=== PATIENT | female | born 1965 | race Caucasian/White ===

== ENCOUNTER 2019-02-08 10:56 | Day surgery (SDC) | payer MEDICAID ==
[~2019-02-08] VITALS: Ht 152.4 cm; Wt 91.6 kg
[2019-02-08] MEDS ORDERED: CHOL10002 PO (12:30)
[2019-02-08] MEDS ORDERED: GLUC-133 PO (12:30)
[2019-02-08] MEDS ORDERED: [UNRECOGNIZED DRUG - CODE] PO (12:30)
[2019-02-08] MEDS ORDERED: FOLI0.8T19 PO (12:30)
[2019-02-08] MEDS ORDERED: LACT1CAP65 PO (12:30)
[2019-02-08] MEDS ORDERED: MERO500P IV (12:30)
[2019-02-08] MEDS ORDERED: VITA1TAB20 PO (12:30)
[2019-02-08] MEDS ORDERED: FISH12002 PO (12:30)
[2019-02-08] MEDS ORDERED: hydromorphone PO (12:30)
[2019-02-08] MEDS ORDERED: SEVE800T8 PO (12:30)
[2019-02-08] MEDS ORDERED: LANTUS SQ (12:30)
[2019-02-08] MEDS ORDERED: LORA0.5T PO (12:30)
[2019-02-08] MEDS ORDERED: ASPI81TA52 PO (12:30)
[2019-02-08] MEDS ORDERED: HYDR-4353 PO (12:30)
[2019-02-08 12:40] VITALS: BP 91/43
[2019-02-08] MEDS ORDERED: HYDROmorphone 1 mg/ml syringe IV ONE (13:25)
[2019-02-08] MEDS ORDERED: normal saline 1000ml 1,000 ML IV SCH (14:51)
[2019-02-08] MEDS ORDERED: heparin 1,000 units/ml 10ml inj ICATH ONE (14:55)
[2019-02-08] MEDS ORDERED: LIDOcaine 1%/PF 5ML 10 MG/ML VIAL SQ ONE (14:55)
[2019-02-08] MEDS ORDERED: fentaNYL/PF 50MCG/1 ML 2ML syringe IV PRN (14:55)
[2019-02-08] MEDS ORDERED: midazolam 2 mg/2 ml injection IV PRN (14:55)
[2019-02-08] MEDS ORDERED: fentaNYL/PF 50MCG/1 ML 2ML syringe ONE (15:06)
[2019-02-08] MEDS ORDERED: LIDOcaine 1%/PF 5ML 10 MG/ML VIAL ONE (15:06)
[2019-02-08] MEDS ORDERED: heparin 1,000unit/ml 10ml vial 10 ML ONE (15:06)
[2019-02-08 16:01] VITALS: BP 95/48
[2019-02-08 16:16] VITALS: BP 95/57
[2019-02-08 16:31] VITALS: BP 112/61
[2019-02-08 16:46] VITALS: BP 108/64
== END 2019-02-08 16:50 ==
LOC: SSTAY O 10:56
PROVIDERS: ATTEND Radiology Diagnostic Radiology
DX: E11.22 Type 2 diabetes mellitus with diabetic chronic kidney disease (principal); N18.9 Chronic kidney disease, unspecified; M86.60 Other chronic osteomyelitis, unspecified site; Z79.899 Other long term (current) drug therapy; Z79.4 Long term (current) use of insulin; Z79.82 Long term (current) use of aspirin; Z89.512 Acquired absence of left leg below knee; Z89.511 Acquired absence of right leg below knee
CPT/HCPCS: 36581; 77001; 99152; C1750; C1769; J1170; J1644; J3010; J7030; A9270

== ENCOUNTER 2020-06-25 06:17 | Inpatient (IN) | payer MEDICAID ==
[~2020-06-25] VITALS: Ht 134.6 cm; Wt 131.0 kg
[~2020-06-25 06:17] MED LIST: ASCO250T68 PO; ASPI81TA52 PO; CHOL10002 PO; FISH12002 PO; FOLI0.8T19 PO; GLUC-133 PO; HYDR-4353 PO; LACT1CAP65 PO; LANTUS SQ; LORA0.5T PO; MERO500P IV; SEVE800T8 PO; VITA1TAB20 PO; hydromorphone PO
[2020-06-25] MEDS ORDERED: vancomycin/NS 1 GM ADD-VANTAGE 250 ML IV ONE (06:50)
[2020-06-25] MEDS ORDERED: piperacillin/tazo 3.375gm/50ml 50 ML IV ONE (06:50)
[2020-06-25 07:26] LABS: BASOPHILS % (AUTO) 0.1 % (0-1); EOSINOPHILS # (AUTO) 0.3 X10'3 (0-0.9); EOSINOPHILS % (AUTO) 2.5 % (0-6); HEMATOCRIT 25.8 % (35.0-45.0); HEMOGLOBIN 8.2 g/dl (12.0-16.0); LYMPHOCYTES # (AUTO) 0.5 X10'3 (1.1-4.8); LYMPHOCYTES % (AUTO) 4.3 % (21-51); MEAN CORPUSCULAR HEMOGLOBIN 28.7 PG (27.0-31.0); MEAN CORPUSCULAR HGB CONC 31.9 g/dL (33.0-36.5); MEAN CORPUSCULAR VOLUME 89.9 FL (78-98); MEAN PLATELET VOLUME 6.5 FL (7.4-10.4); MONOCYTES # (AUTO) 0.4 X10'3 (0-0.9); MONOCYTES % (AUTO) 3.4 % (2-12); NEUTROPHILS # (AUTO) 10.8 X10'3 (1.8-7.7); NEUTROPHILS % (AUTO) 89.7 % (42-75); PLATELET COUNT 185 X10'3 (140-440); RED BLOOD COUNT 2.87 X10'6 (4.20-5.60); RED CELL DISTRIBUTION WIDTH 14.6 % (11.5-14.5)
[2020-06-25 07:41] LABS: ALANINE AMINOTRANSFERASE 7 U/L (12-78); ALBUMIN 2.3 G/DL (3.4-5.0); ALBUMIN/GLOBULIN RATIO 0.4 (1.1-1.5); ALKALINE PHOSPHATASE 53 IU/L (46-116); ANION GAP 18 (8-16); ASPARTATE AMINO TRANSFERASE 15 U/L (10-37); BILIRUBIN,TOTAL 0.6 MG/DL (0.1-1.0); BLOOD UREA NITROGEN 93 MG/DL (7-18); BUN/CREATININE RATIO 9.4 (6.6-38.0); CALCIUM 6.6 MG/DL (8.5-10.1); CHLORIDE 98 MMOL/L (99-107); CREATININE 9.93 MG/DL (0.40-0.90); GLUCOSE 143 MG/DL (70-104); POTASSIUM 4.9 MMOL/L (3.5-5.1); SODIUM 135 MMOL/L (135-145); TOTAL CARBON DIOXIDE 18.6 MMOL/L (24-32); TOTAL PROTEIN 8.3 G/DL (6.4-8.2); eGFR 4 ML/MIN
[2020-06-25 07:42] LABS: VANCOMYCIN,RANDOM 18.8 UG/ML
--- NOTE | 2020-06-25 08:00 | NUR ---
Pt repositioned after pressure/wound sores pictures taken
[2020-06-25 08:35] LABS: TROPONIN I < 0.04 NG/ML (0.0-0.05)
[2020-06-25 09:21] LABS: PLATELET ESTIMATE NORMAL; TOTAL CELLS COUNTED 100
[2020-06-25 09:22] LABS: HYPOCHROMASIA 1+; POLYCHROMASIA FEW; SCHISTOCYTES FEW
--- NOTE | 2020-06-25 09:24 | NUR ---
Pt given ice and repositioned, pt denies needs or questions.
[2020-06-25] MEDS ORDERED: ondansetron/PF 4mg/2ml inj IV PRN (09:30)
[2020-06-25] MEDS ORDERED: heparin 1,000unit/ml 10ml vial 10 ML IV ONE (09:30)
[2020-06-25] MEDS ORDERED: acetaminophen 325mg tablet PO PRN (09:30)
[2020-06-25] MEDS ORDERED: HYDROcodone/acetaminophen 5mg/325mg tablet PO PRN (09:30)
[2020-06-25] MEDS ORDERED: heparin 1,000 units/ml 10ml inj IV ONE (09:30)
[2020-06-25] MEDS ORDERED: albumin (human) 25% 100ml IV 100 ML IV PRN (09:30)
[2020-06-25] MEDS ORDERED: bisacodyl 10mg suppository rectal RC PRN (09:30)
[2020-06-25] MEDS ORDERED: epoetin 20,000 units/ml inj IV ONE (09:30)
[2020-06-25 10:06] LABS: HEMOGLOBIN A1C 6.7 % (4.5-6.2)
[2020-06-25] MEDS ORDERED: LACT1TAB21 PO (10:20)
[2020-06-25] MEDS ORDERED: HYDR50SY PO (10:20)
[2020-06-25] MEDS ORDERED: INSU100I31 SQ (10:22)
[2020-06-25] MEDS ORDERED: CEPH500C5 PO (10:43)
[2020-06-25] MEDS ORDERED: OMEG-79 PO (10:44)
[2020-06-25] MEDS: meropenem inj 500 MG in normal saline 100ml IV soln 100 ML IV SCH (11:00)
--- NOTE | 2020-06-25 11:28 | NUR ---
CALLED DR ORTIZ AND INFORMED OF PTS TRENDING BPS. PT CURRENT BP 88/52. RECEIVED VO TO ADMINISTER 100ML OF 25% ALBUMIN X 1 NOW.
[2020-06-25] MEDS ORDERED: albumin (human) 25% 100 ML IV solution IV ONE (11:40)
--- NOTE | 2020-06-25 12:14 | NUR ---
RELIEVING RAJESH STODDARD FOR LUNCH
--- NOTE | 2020-06-25 12:31 | NUR ---
WOKE PATIENT UP AND INSTRUCTED HER TO TAKE DEEP BREATHS AND SPO2 TO 93%
--- NOTE | 2020-06-25 12:46 | NUR ---
PHONED DR ONOFRE, ORDERS RECEIVED. DR ORTIZ INFORMED OF BP OF 79/47, DECREASED LOC, SPO2 TO 80% WHEN SLEEPING AND RR 10
--- NOTE | 2020-06-25 13:17 | NUR ---
Spoke with Dr Lindsay re BiPAP order to clarify the use for it. Pt is on RA with a SpO2 of 96%, no SOB or distress noted. Pt states she has never been diagnosed with EVELIO or does she use anything at home while she sleeps. Dr luciano stated not to do anything and to DC the BiPAP order. He stated he wanted the pt to be transferred up to PCU [facility]. Pt sleeping peacefully RR 14 SpO2 96%.
--- NOTE | 2020-06-25 13:27 | NUR ---
SPOKE TO DARRIUS IN WOUND CARE AGAIN. INFORMED HER THAT PATIENT DOES HAVE BOTH COCCYX DECUB AND POSTERIOR THIGH DECUB. PER DARRIUS, NO NEED AT HIS TIME FOR SPECIALTY BED FOR DECUBS, ONLY NEED BARIATRIC BED FOR PATIENT WIDTH
[2020-06-25 15:00] VITALS: BP 102/47
--- NOTE | 2020-06-25 15:00 | NUR ---
SPOKE WITH DR ORTIZ REGARDING PICC ORDER PER ER TO BE PLACED EMERGENTLY IN THE ER. HE ADVISED PICC NOT NEEDED AT THIS TIME IF PT HAS IV ACCESS. Prasanna SALDIVAR PICC RN
--- NOTE | 2020-06-25 15:32 | NUR ---
Received Pt A&O, vital signs 97.3, 101/50, HR 90, 20, 93%. Report was received while pt was in ED by RICHI Boggs.
[2020-06-25] MEDS ORDERED: LIDOcaine 1% (10mg/ml) 2ml vial SQ ONE (15:50)
[2020-06-25] MEDS ORDERED: piperacillin/tazo 3.375gm/50ml 50 ML IV SCH (16:00)
[2020-06-25] MEDS ORDERED: vancomycin/NS 1 GM ADD-VANTAGE 250 ML X 1 DOSE IV PRN (16:05)
--- NOTE | 2020-06-25 16:54 | NUR ---
Pt refused 2 RN skin check.
[2020-06-25 18:00] VITALS: BP 90/40
--- NOTE | 2020-06-25 18:33 | NUR ---
Problems reprioritized. Patient report given, questions answered & plan of care reviewed with RICHI Garcia. Pt receiving HD.
[2020-06-25] MEDS: insulin glargine (Lantus) pen - multi-dose SQ SCH (20:26)
--- NOTE | 2020-06-25 20:27 | NUR ---
Pt refused lantus this evening r/t her blood sugar being 81. Pt informed this nurse that she would not administer any lantus at home with her current blood sugar reading.
[2020-06-25] MEDS: lactobacillus rhamnosus 10,000 MMU CELLS/CAPSULE PO SCH (20:28)
[2020-06-25] MEDS: docusate sod 100mg capsule PO SCH (20:28)
[2020-06-25] MEDS ORDERED: enoxaparin 40mg/0.4ml syringe SUBCUT SCH (21:00)
[2020-06-25] MEDS ORDERED: temazepam 15mg capsule PO PRN (21:00)
[2020-06-25 22:00] VITALS: BP 95/48
[2020-06-26 02:00] VITALS: BP 92/47
[2020-06-26 06:24] LABS: BASOPHILS # (AUTO) 0.1 X10'3 (0-0.2); BASOPHILS % (AUTO) 0.4 % (0-1); EOSINOPHILS # (AUTO) 0.5 X10'3 (0-0.9); EOSINOPHILS % (AUTO) 3.1 % (0-6); HEMATOCRIT 24.2 % (35.0-45.0); HEMOGLOBIN 7.8 g/dl (12.0-16.0); LYMPHOCYTES # (AUTO) 0.7 X10'3 (1.1-4.8); LYMPHOCYTES % (AUTO) 4.9 % (21-51); MEAN CORPUSCULAR HEMOGLOBIN 28.1 PG (27.0-31.0); MEAN CORPUSCULAR HGB CONC 32.2 g/dL (33.0-36.5); MEAN CORPUSCULAR VOLUME 87.1 FL (78-98); MEAN PLATELET VOLUME 6.4 FL (7.4-10.4); MONOCYTES # (AUTO) 0.8 X10'3 (0-0.9); MONOCYTES % (AUTO) 5.2 % (2-12); NEUTROPHILS # (AUTO) 13.1 X10'3 (1.8-7.7); NEUTROPHILS % (AUTO) 86.4 % (42-75); PLATELET COUNT 194 X10'3 (140-440); RED BLOOD COUNT 2.78 X10'6 (4.20-5.60); RED CELL DISTRIBUTION WIDTH 14.5 % (11.5-14.5); WHITE BLOOD COUNT 15.2 X10'3 (4.5-11.0)
[2020-06-26 06:30] VITALS: BP 98/44
--- NOTE | 2020-06-26 06:35 | NUR ---
Report given to Josie STODDARD.
[2020-06-26 06:37] LABS: ALBUMIN 2.3 G/DL (3.4-5.0); ANION GAP 15 (8-16); BLOOD UREA NITROGEN 54 MG/DL (7-18); BUN/CREATININE RATIO 8.4 (6.6-38.0); CALCIUM 6.8 MG/DL (8.5-10.1); CHLORIDE 103 MMOL/L (99-107); CREATININE 6.42 MG/DL (0.40-0.90); GLUCOSE 93 MG/DL (70-104); PHOSPHORUS 5.4 MG/DL (2.3-4.5); SODIUM 140 MMOL/L (135-145); TOTAL CARBON DIOXIDE 22.3 MMOL/L (24-32); VANCOMYCIN,RANDOM 13.6 UG/ML; eGFR 7 ML/MIN
--- NOTE | 2020-06-26 06:37 | NUR ---
Patient in room PCU 3024. I have received report from Radha STODDARD and had the opportunity to ask questions and assume patient care.
[2020-06-26] MEDS ORDERED: heparin 1,000 units/ml 10ml inj IV ONE (08:10)
[2020-06-26] MEDS ORDERED: heparin 1,000unit/ml 10ml vial 10 ML IV ONE (08:10)
[2020-06-26] MEDS ORDERED: albumin (human) 25% 100ml IV 100 ML IV PRN (08:10)
[2020-06-26] MEDS ORDERED: vancomycin inj. 750 MG in normal saline 250ml IV soln 250 ML IV ONE (09:00)
[2020-06-26] MEDS: OMEGA-3/DHA/EPA/FISH OIL 1 EACH CAPSULE.DR PO SCH (09:14)
[2020-06-26] MEDS: docusate sod 100mg capsule PO SCH ×2 (09:14→20:26)
[2020-06-26] MEDS: aspirin 81mg tablet.DR PO SCH (09:14)
[2020-06-26] MEDS: lactobacillus rhamnosus 10,000 MMU CELLS/CAPSULE PO SCH ×2 (09:14→20:26)
[2020-06-26 11:00] VITALS: BP 104/44
[2020-06-26] MEDS: meropenem inj 500 MG in normal saline 100ml IV soln 100 ML IV SCH (11:02)
--- NOTE | 2020-06-26 11:06 | NUR ---
Offered pain medicine to the patient, she refused it. Patient stated that she takes 10mg of [place] and that 5mg will not help her. Patient said she will talk to the doctor about this
[2020-06-26] MEDS: HYDROmorphone inj. 0.5 MG/0.5 ML DISP.SYRIN IV PRN ×3 (11:11→20:25)
--- NOTE | 2020-06-26 11:13 | NUR ---
Upon review of chart, I discovered patient already on [place] 10mg. However, when I offered it to patient, she requested Dilaudid IV instead.
[2020-06-26 15:00] VITALS: BP 101/63
[2020-06-26] MEDS ORDERED: LIDOcaine 1% (10mg/ml) 2ml vial SQ ONE (15:10)
--- NOTE | 2020-06-26 15:23 | NUR ---
Dialysis nurse at bedside at this time
--- NOTE | 2020-06-26 15:34 | NUR ---
Initial: pt presents as transfer from [facility]. Admitted with sepsis, nonhealing ulcer to back left thigh, Jon 12, h/o ESRD, HD for year and a half using left AV graft, s/p bilateral AKA, morbidly obese, type 2 diabetes, and c/o itchy lesions all over the body all per H&P note. Phosphorus is elevated, elevated phos could also be r/t itchy skin. Ht prior to AKA 60 inches, current high 53 inches. Wt is adjusted in consideration to morbid obesity and bilateral AKA. Met with patient at bedside, provided written high protein education handout with verbal review. Emphasized eating protein rich foods to support wound heal and HD needs. Obtained food preferences including chopped meats with gravy and 4 oz whole milk with breakfast, d/w dietary. Recommend: 1. continue renal, carb controlled diet, chopped meats 2. recommend phosphate binder 3. routine bowel care 4. wt per rx Addendum: 06/26/20 at [address] Amended: Links added.
--- NOTE | 2020-06-26 18:15 | NUR ---
Patient in room PCU 3024. I have received report from RICHI Munoz and had the opportunity to ask questions and assume patient care.
--- NOTE | 2020-06-26 18:17 | NUR ---
Problems reprioritized. Patient report given, questions answered & plan of care reviewed with Jessica SOTDDARD.
[2020-06-26 18:30] VITALS: BP 102/56
--- NOTE | 2020-06-26 18:51 | NUR ---
Pt receiving dialysis at this time, airport maintenance laborer at bedside. No complaints. Addendum: 06/26/20 at 1852 by Mike Carlton RN Amended: Links added.
--- NOTE | 2020-06-26 19:29 | NUR ---
Repositioned, sitting up in bed eating dinner. Dialysis finished. Addendum: 06/26/20 at 1931 by Mike Carlton RN Amended: Links added.
[2020-06-26] MEDS: enoxaparin 30mg/0.3ml syringe SUBCUT SCH (20:26)
--- NOTE | 2020-06-26 20:38 | NUR ---
Talking on phone, refusing to turn or any hs, wound care at this time. Addendum: 06/26/20 at 2038 by Mike Carlton RN Amended: Links added.
[2020-06-26] MEDS: insulin glargine (Lantus) pen - multi-dose SQ SCH (21:00)
[2020-06-26 22:00] VITALS: BP 90/46
--- NOTE | 2020-06-26 23:00 | NUR ---
refuses any hs care at this [facility] refuses to turn ot have sacrum assessed or under pannus, refuses f/c until next dilauded. Addendum: 06/26/20 at 2301 by Mike Carlton RN Amended: Links added.
[2020-06-27 02:30] VITALS: BP 110/55
[2020-06-27] MEDS: VANCOMYCIN LEVEL IV SCH (03:00)
[2020-06-27] MEDS: HYDROmorphone inj. 0.5 MG/0.5 ML DISP.SYRIN IV PRN ×4 (04:40→20:24)
--- NOTE | 2020-06-27 04:46 | NUR ---
pT HAS REFUSED THROUGHOUT NIGHT TO HAVE PICTURES TAKEN OF SACRUM AND WOUNDS TO UPPER LEGS. LEGS WEEPING SEROUS DRNG, PT REFUSES TO TURN AND HAS REFUSED TO TURN MOST OF NIGHT. "I NEED TO SLEEP, NO NOT NOW" PT STATES WILL HAVE BATH, HARO CAR AND PICTURES TAKEN THIS AM WHEN SHE WAKES UP. DILAUDED GIVEN FOR PAIN. Addendum: 06/27/20 at 0448 by Mike Carlton RN Amended: Links added.
[2020-06-27 05:50] LABS: BASOPHILS % (AUTO) 0.2 % (0-1); EOSINOPHILS # (AUTO) 0.7 X10'3 (0-0.9); EOSINOPHILS % (AUTO) 4.2 % (0-6); HEMATOCRIT 22.5 % (35.0-45.0); HEMOGLOBIN 7.2 g/dl (12.0-16.0); MEAN CORPUSCULAR HGB CONC 32.1 g/dL (33.0-36.5); MEAN CORPUSCULAR VOLUME 87.1 FL (78-98); MEAN PLATELET VOLUME 6.2 FL (7.4-10.4); MONOCYTES # (AUTO) 1.2 X10'3 (0-0.9); MONOCYTES % (AUTO) 7.1 % (2-12); NEUTROPHILS # (AUTO) 13.6 X10'3 (1.8-7.7); NEUTROPHILS % (AUTO) 82.5 % (42-75); PLATELET COUNT 199 X10'3 (140-440); RED BLOOD COUNT 2.59 X10'6 (4.20-5.60); RED CELL DISTRIBUTION WIDTH 14.9 % (11.5-14.5); WHITE BLOOD COUNT 16.5 X10'3 (4.5-11.0)
[2020-06-27 06:00] VITALS: BP 102/48
[2020-06-27 06:04] LABS: ALBUMIN 2.1 G/DL (3.4-5.0); ANION GAP 11 (8-16); BLOOD UREA NITROGEN 37 MG/DL (7-18); BUN/CREATININE RATIO 7.7 (6.6-38.0); CALCIUM 7.2 MG/DL (8.5-10.1); CHLORIDE 103 MMOL/L (99-107); GLUCOSE 87 MG/DL (70-104); MAGNESIUM 1.9 MG/DL (1.5-2.4); PHOSPHORUS 4.2 MG/DL (2.3-4.5); POTASSIUM 3.8 MMOL/L (3.5-5.1); SODIUM 139 MMOL/L (135-145); TOTAL CARBON DIOXIDE 25.3 MMOL/L (24-32); VANCOMYCIN,RANDOM 16.2 UG/ML; eGFR 9 ML/MIN
--- NOTE | 2020-06-27 06:18 | NUR ---
Problems reprioritized. Patient report given, questions answered & plan of care reviewed witH. RICHI CARRERO Addendum: 06/27/20 at 0618 by Mike Carlton RN Amended: Links added.
--- NOTE | 2020-06-27 06:50 | NUR ---
Patient in room PCU 3024. I have received report from Jessica STODDARD and had the opportunity to ask questions and assume patient care.
[2020-06-27] MEDS: docusate sod 100mg capsule PO SCH ×2 (07:45→20:22)
[2020-06-27] MEDS: aspirin 81mg tablet.DR PO SCH (07:45)
[2020-06-27] MEDS: meropenem inj 500 MG in normal saline 100ml IV soln 100 ML IV SCH (07:45)
[2020-06-27] MEDS: lactobacillus rhamnosus 10,000 MMU CELLS/CAPSULE PO SCH ×2 (07:45→20:22)
[2020-06-27] MEDS: OMEGA-3/DHA/EPA/FISH OIL 1 EACH CAPSULE.DR PO SCH (07:45)
[2020-06-27] MEDS ORDERED: LIDOcaine 1% w/epiNEPHrine 1:200,000 30ml vial ONE (07:50)
--- NOTE | 2020-06-27 08:30 | NUR ---
Pt has small scattered scabs to bilat arms,torso and neck, bruising to abd. dressing to Right arm shunt. large pannus, reddened underneath, pt refuses to turn to have sacrum assessed or pictures taken, bilat aka, edematous weepin refuses any wound care, skin care at this time. Lotion applied a little on stumps but refused all other skin care. Turning only when pt requests. Will NOT allow Q2Hr turn.
[2020-06-27 08:58] LABS: PLATELET ESTIMATE NORMAL; TOTAL CELLS COUNTED 100
[2020-06-27 08:59] LABS: ANISOCYTOSIS 1+; HYPOCHROMASIA 2+; POLYCHROMASIA FEW; SCHISTOCYTES FEW
[2020-06-27 09:00] LABS: STOMATOCYTES 1+; TOXIC GRANULATION 2+
[2020-06-27 11:00] VITALS: BP 99/45
--- NOTE | 2020-06-27 11:31 | NUR ---
called Dr Costello regarding results of MDRO in the urine, E.Coli sample from [place].
[2020-06-27 15:00] VITALS: BP 101/43
[2020-06-27 18:00] VITALS: BP 87/44
--- NOTE | 2020-06-27 18:41 | NUR ---
Problems reprioritized. Patient report given, questions answered & plan of care reviewed with Gordon STODDARD.
--- NOTE | 2020-06-27 18:55 | NUR ---
I have received report from RICHI Brown and had the opportunity to ask questions and assume patient care.
[2020-06-27] MEDS: enoxaparin 30mg/0.3ml syringe SUBCUT SCH (20:23)
[2020-06-27] MEDS: insulin glargine (Lantus) pen - multi-dose SQ SCH (21:00)
[2020-06-28] VITALS (10 sets, daily range): BP systolic 70–120; BP diastolic 26–90
[2020-06-28] MEDS: HYDROmorphone inj. 0.5 MG/0.5 ML DISP.SYRIN IV PRN ×5 (00:22→21:41)
[2020-06-28] MEDS: VANCOMYCIN LEVEL IV SCH (03:00)
--- NOTE | 2020-06-28 06:25 | NUR ---
Patient report given, questions answered & plan of care reviewed with RICHI Munson.
--- NOTE | 2020-06-28 06:52 | NUR ---
Patient in room PCU 3024. I have received report from TEODORO STODDARD and had the opportunity to ask questions and assume patient care.
[2020-06-28 07:33] LABS: BASOPHILS # (AUTO) 0.1 X10'3 (0-0.2); BASOPHILS % (AUTO) 0.4 % (0-1); EOSINOPHILS # (AUTO) 0.7 X10'3 (0-0.9); EOSINOPHILS % (AUTO) 4.4 % (0-6); LYMPHOCYTES # (AUTO) 1.5 X10'3 (1.1-4.8); LYMPHOCYTES % (AUTO) 8.8 % (21-51); MEAN CORPUSCULAR HEMOGLOBIN 28.8 PG (27.0-31.0); MEAN CORPUSCULAR HGB CONC 32.7 g/dL (33.0-36.5); MEAN CORPUSCULAR VOLUME 87.9 FL (78-98); MEAN PLATELET VOLUME 6.1 FL (7.4-10.4); MONOCYTES # (AUTO) 1.2 X10'3 (0-0.9); MONOCYTES % (AUTO) 7.3 % (2-12); NEUTROPHILS # (AUTO) 13.1 X10'3 (1.8-7.7); NEUTROPHILS % (AUTO) 79.1 % (42-75); PLATELET COUNT 195 X10'3 (140-440); RED BLOOD COUNT 2.38 X10'6 (4.20-5.60); RED CELL DISTRIBUTION WIDTH 14.7 % (11.5-14.5); WHITE BLOOD COUNT 16.6 X10'3 (4.5-11.0)
[2020-06-28 07:39] LABS: HEMATOCRIT 20.9 % (35.0-45.0); HEMOGLOBIN 6.8 g/dl (12.0-16.0)
--- NOTE | 2020-06-28 07:39 | NUR ---
LAB CALLED ON A CRITICAL H&H OF 6.8/20.9. THEY STILL DON'T HAVE CHEM PANEL UP YET TO CHECK OTHER LABS
[2020-06-28 07:48] LABS: ALBUMIN 2.1 G/DL (3.4-5.0); ANION GAP 11 (8-16); BLOOD UREA NITROGEN 41 MG/DL (7-18); BUN/CREATININE RATIO 7.8 (6.6-38.0); CHLORIDE 99 MMOL/L (99-107); CREATININE 5.27 MG/DL (0.40-0.90); GLUCOSE 97 MG/DL (70-104); PHOSPHORUS 4.4 MG/DL (2.3-4.5); POTASSIUM 3.9 MMOL/L (3.5-5.1); SODIUM 135 MMOL/L (135-145); TOTAL CARBON DIOXIDE 24.7 MMOL/L (24-32); VANCOMYCIN,RANDOM 14.3 UG/ML; eGFR 8 ML/MIN
[2020-06-28] MEDS: aspirin 81mg tablet.DR PO SCH (08:00)
[2020-06-28] MEDS ORDERED: vancomycin/NS 1 GM ADD-VANTAGE 250 ML X 1 DOSE IV ONE (08:00)
[2020-06-28 08:25] LABS: ANISOCYTOSIS 1+; PLATELET ESTIMATE NORMAL; POLYCHROMASIA FEW; STOMATOCYTES 1+; TOTAL CELLS COUNTED 100
[2020-06-28] MEDS: meropenem inj 500 MG in normal saline 100ml IV soln 100 ML IV SCH (09:01)
[2020-06-28] MEDS: OMEGA-3/DHA/EPA/FISH OIL 1 EACH CAPSULE.DR PO SCH (09:02)
[2020-06-28] MEDS: docusate sod 100mg capsule PO SCH ×2 (09:02→20:53)
[2020-06-28] MEDS: lactobacillus rhamnosus 10,000 MMU CELLS/CAPSULE PO SCH ×2 (09:02→20:53)
--- NOTE | 2020-06-28 10:12 | NUR ---
CALLED LAB FOR BLOOD. NOT READY YET
--- NOTE | 2020-06-28 10:48 | NUR ---
PRESSURE ULCER EDUCATION: DEFINITION: A pressure ulcer is an area of skin that breaks down when you stay in one position too long. The constant pressure against the skin reduces the blood flow to that area and the affected tissue dies. CAUSES: "Being bedridden or in a wheelchair "Fragile skin "Having a chronic condition, such as diabetes or vascular disease "Inability to move certain parts of your body without assistance "Older age "Incontinence of urine or stool SYMPTOMS: "A reddened area that DOES NOT turn white when pressed on - this can be the beginning of a pressure ulcer "A blister, deep sore or a crater - these can be advanced pressure ulcers FIRST AID: "Relieve the pressure on this area "Keep the area clean and dry "Call your primary doctor if you see any of the above symptoms "DO NOT massage the area "DO NOT use a donut shaped or ring shaped pillow- these actually interfere with the blood flow and cause complications PREVENTION: "Check for pressure ulcers everyday "Change position at least every two hours to relieve pressure "Use items that help relieve pressure- pillows, sheepskin, foam padding, and powders. "Keep skin clean and dry "Eat healthy well balanced meals "Exercise daily IF YOU SEE ANY OF THESE SYMPTOMS WHILE IN THE HOSPITAL - TELL YOUR NURSE IMMEDIATELY. IF YOU SEE ANY OF THESE SYMPTOMS WHILE AT HOME OR HAVE ANY QUESTIONS OR CONCERNS ABOUT PRESSURE ULCERS - CALL YOUR PRIMARY DOCTOR IMMEDIATELY. Addendum: 06/28/20 at 1050 by Tracey Maier RN Amended: Links added.
--- NOTE | 2020-06-28 11:22 | NUR ---
BLOOD IS READY. WILL FINSIH IV INFUSION OF VANCO THEN HANG BLOOD. PT CANNOT HAVE ANOTHER IV SHE IS ON DIALYSIS
[2020-06-28 11:30] LABS: HBSAG SCREEN Negative (Negative)
--- NOTE | 2020-06-28 18:20 | NUR ---
Patient in room PCU 3024. I have received report from Jeimy STODDARD and had the opportunity to ask questions and assume patient care.
--- NOTE | 2020-06-28 18:31 | NUR ---
Problems reprioritized. Patient report given, questions answered & plan of care reviewed with SUPRIYA STODDARD.
[2020-06-28] MEDS: enoxaparin 30mg/0.3ml syringe SUBCUT SCH (20:53)
[2020-06-28] MEDS: insulin glargine (Lantus) pen - multi-dose SQ SCH (21:00)
[2020-06-29 02:00] VITALS: BP 96/58
[2020-06-29] MEDS: VANCOMYCIN LEVEL IV SCH (03:00)
[2020-06-29] MEDS: HYDROmorphone inj. 0.5 MG/0.5 ML DISP.SYRIN IV PRN ×4 (04:06→20:55)
[2020-06-29 06:00] VITALS: BP 96/52
--- NOTE | 2020-06-29 06:42 | NUR ---
Problems reprioritized. Patient report given, questions answered & plan of care reviewed with Sho STODDARD.
--- NOTE | 2020-06-29 07:13 | NUR ---
Patient in room PCU 3024. I have received report from RICHI Reyna and had the opportunity to ask questions and assume patient care.
[2020-06-29 07:19] LABS: BASOPHILS # (AUTO) 0.1 X10'3 (0-0.2); BASOPHILS % (AUTO) 0.5 % (0-1); EOSINOPHILS # (AUTO) 0.6 X10'3 (0-0.9); EOSINOPHILS % (AUTO) 4.6 % (0-6); HEMATOCRIT 24.1 % (35.0-45.0); HEMOGLOBIN 7.8 g/dl (12.0-16.0); LYMPHOCYTES # (AUTO) 1.1 X10'3 (1.1-4.8); LYMPHOCYTES % (AUTO) 8.1 % (21-51); MEAN CORPUSCULAR HEMOGLOBIN 27.8 PG (27.0-31.0); MEAN CORPUSCULAR HGB CONC 32.2 g/dL (33.0-36.5); MEAN CORPUSCULAR VOLUME 86.4 FL (78-98); MEAN PLATELET VOLUME 6.2 FL (7.4-10.4); NEUTROPHILS # (AUTO) 11.1 X10'3 (1.8-7.7); NEUTROPHILS % (AUTO) 79.8 % (42-75); PLATELET COUNT 182 X10'3 (140-440); RED BLOOD COUNT 2.79 X10'6 (4.20-5.60); RED CELL DISTRIBUTION WIDTH 14.9 % (11.5-14.5); WHITE BLOOD COUNT 13.9 X10'3 (4.5-11.0)
[2020-06-29 07:31] LABS: ANION GAP 11 (8-16); BLOOD UREA NITROGEN 45 MG/DL (7-18); BUN/CREATININE RATIO 7.9 (6.6-38.0); CALCIUM 7.4 MG/DL (8.5-10.1); CHLORIDE 99 MMOL/L (99-107); CREATININE 5.73 MG/DL (0.40-0.90); GLUCOSE 121 MG/DL (70-104); MAGNESIUM 1.9 MG/DL (1.5-2.4); PHOSPHORUS 4.6 MG/DL (2.3-4.5); POTASSIUM 3.8 MMOL/L (3.5-5.1); SODIUM 135 MMOL/L (135-145); TOTAL CARBON DIOXIDE 25.1 MMOL/L (24-32); eGFR 8 ML/MIN
[2020-06-29] MEDS: OMEGA-3/DHA/EPA/FISH OIL 1 EACH CAPSULE.DR PO SCH (08:28)
[2020-06-29] MEDS: lactobacillus rhamnosus 10,000 MMU CELLS/CAPSULE PO SCH ×2 (08:28→19:10)
[2020-06-29] MEDS: aspirin 81mg tablet.DR PO SCH (08:28)
[2020-06-29] MEDS: docusate sod 100mg capsule PO SCH ×2 (08:28→19:09)
[2020-06-29] MEDS: meropenem inj 500 MG in normal saline 100ml IV soln 100 ML IV SCH (08:29)
[2020-06-29] MEDS ORDERED: heparin 1,000 units/ml 10ml inj IV ONE (10:15)
[2020-06-29] MEDS ORDERED: normal saline 1000ml 250 ML IV PRN (10:15)
[2020-06-29] MEDS ORDERED: epoetin 20,000 units/ml inj IV ONE (10:15)
[2020-06-29] MEDS ORDERED: LIDOcaine 1% (10mg/ml) 2ml vial SQ ONE (10:15)
[2020-06-29 11:00] VITALS: BP 96/47
--- NOTE | 2020-06-29 11:21 | NUR ---
Reassessment: Patient's PO intake appears to be improving, previously averaging 25% PO intake up to 75-100% PO intake at two most recent meals. Pt has RD contact information if with any further food preferences. LBM 06/25, now 4 days with no BM though no GI symptoms per GI care trends. Pt receiving routine bowel care with PRN bowel care available. Will continue to follow closely and monitor need for further nutrition intervention. Recommend: 1. continue renal, carb controlled diet, chopped meats 2. recommend phosphate binder 3. routine bowel care 4. wt per rx Addendum: 06/29/20 at [address] Amended: Links added.
[2020-06-29 12:06] LABS: TOTAL CELLS COUNTED 100
[2020-06-29 12:07] LABS: PLATELET ESTIMATE NORMAL; POLYCHROMASIA FEW; STOMATOCYTES 2+; TEAR DROP CELLS FEW
[2020-06-29] MEDS ORDERED: albumin (human) 25% 100ml IV 100 ML IV PRN (12:15)
--- NOTE | 2020-06-29 12:30 | NUR ---
Pt having low bp while on dialysis. New order for Albumin IV [place].
[2020-06-29 15:00] VITALS: BP 105/51
[2020-06-29 18:00] VITALS: BP 104/52
--- NOTE | 2020-06-29 18:42 | NUR ---
Problems reprioritized. Patient report given, questions answered & plan of care reviewed with RICHI Garcia.
[2020-06-29] MEDS: HYDROcodone/acetaminophen 10/325mg tab PO PRN (19:10)
[2020-06-29] MEDS: enoxaparin 30mg/0.3ml syringe SUBCUT SCH (19:11)
[2020-06-29] MEDS: insulin glargine (Lantus) pen - multi-dose SQ SCH (21:00)
[2020-06-29 22:00] VITALS: BP 90/50
[2020-06-30] MEDS: HYDROcodone/acetaminophen 10/325mg tab PO PRN ×3 (01:00→23:12)
[2020-06-30] MEDS: HYDROmorphone inj. 0.5 MG/0.5 ML DISP.SYRIN IV PRN ×4 (01:50→23:53)
[2020-06-30 02:00] VITALS: BP 119/50
[2020-06-30] MEDS: VANCOMYCIN LEVEL IV SCH (03:00)
--- NOTE | 2020-06-30 06:18 | NUR ---
Problems reprioritized. Patient report given, questions answered & plan of care reviewed with RICHI Carranza.
[2020-06-30 06:29] LABS: BASOPHILS % (AUTO) 0.3 % (0-1); EOSINOPHILS # (AUTO) 0.7 X10'3 (0-0.9); EOSINOPHILS % (AUTO) 4.7 % (0-6); HEMATOCRIT 25.2 % (35.0-45.0); HEMOGLOBIN 8.1 g/dl (12.0-16.0); LYMPHOCYTES # (AUTO) 1.3 X10'3 (1.1-4.8); LYMPHOCYTES % (AUTO) 8.9 % (21-51); MEAN CORPUSCULAR HEMOGLOBIN 28.2 PG (27.0-31.0); MEAN CORPUSCULAR HGB CONC 32.1 g/dL (33.0-36.5); MEAN CORPUSCULAR VOLUME 87.8 FL (78-98); MEAN PLATELET VOLUME 6.3 FL (7.4-10.4); MONOCYTES % (AUTO) 6.9 % (2-12); NEUTROPHILS # (AUTO) 11.5 X10'3 (1.8-7.7); NEUTROPHILS % (AUTO) 79.2 % (42-75); PLATELET COUNT 193 X10'3 (140-440); RED BLOOD COUNT 2.88 X10'6 (4.20-5.60); WHITE BLOOD COUNT 14.5 X10'3 (4.5-11.0)
--- NOTE | 2020-06-30 06:29 | NUR ---
Patient in room PCU 3024. I have received report from Radha STODDARD and had the opportunity to ask questions and assume patient care.
[2020-06-30 06:32] LABS: ALBUMIN 2.2 G/DL (3.4-5.0); ANION GAP 9 (8-16); BLOOD UREA NITROGEN 26 MG/DL (7-18); BUN/CREATININE RATIO 6.7 (6.6-38.0); CALCIUM 7.5 MG/DL (8.5-10.1); CHLORIDE 100 MMOL/L (99-107); CREATININE 3.87 MG/DL (0.40-0.90); GLUCOSE 138 MG/DL (70-104); MAGNESIUM 1.9 MG/DL (1.5-2.4); PHOSPHORUS 3.3 MG/DL (2.3-4.5); SODIUM 135 MMOL/L (135-145); TOTAL CARBON DIOXIDE 26.2 MMOL/L (24-32); VANCOMYCIN,RANDOM 14.5 UG/ML; eGFR 12 ML/MIN
[2020-06-30 07:29] VITALS: BP 104/52
[2020-06-30] MEDS ORDERED: vancomycin/NS 1 GM ADD-VANTAGE 250 ML X 1 DOSE IV ONE (07:45)
[2020-06-30 07:59] LABS: ANISOCYTOSIS 1+; PLATELET ESTIMATE NORMAL; TOTAL CELLS COUNTED 100
[2020-06-30 08:00] LABS: POLYCHROMASIA FEW; STOMATOCYTES 2+
[2020-06-30] MEDS: lactobacillus rhamnosus 10,000 MMU CELLS/CAPSULE PO SCH ×2 (08:08→20:00)
[2020-06-30] MEDS: meropenem inj 500 MG in normal saline 100ml IV soln 100 ML IV SCH (08:08)
[2020-06-30] MEDS: OMEGA-3/DHA/EPA/FISH OIL 1 EACH CAPSULE.DR PO SCH (08:08)
[2020-06-30] MEDS: docusate sod 100mg capsule PO SCH ×2 (08:09→20:00)
[2020-06-30] MEDS: aspirin 81mg tablet.DR PO SCH (08:09)
[2020-06-30 11:00] VITALS: BP 80/51
[2020-06-30 15:00] VITALS: BP 104/51
[2020-06-30 18:00] VITALS: BP 107/41
--- NOTE | 2020-06-30 18:00 | NUR ---
Patient refused any type of dressing change or wound pictures, patient stated, "they just took the pictures."
--- NOTE | 2020-06-30 18:43 | NUR ---
Problems reprioritized. Patient report given, questions answered & plan of care reviewed with QUIQUE STODDARD.
[2020-06-30] MEDS: enoxaparin 30mg/0.3ml syringe SUBCUT SCH (20:36)
[2020-06-30] MEDS: insulin glargine (Lantus) pen - multi-dose SQ SCH (21:00)
[2020-06-30 22:00] VITALS: BP 105/51
[2020-06-30] MEDS: diphenhydrAMINE 25mg capsule PO PRN ×2 (23:12→23:16)
--- NOTE | 2020-06-30 23:17 | NUR ---
PT WAS OFFERED SARAYL WITH HER NORCO FOR ITCHING AND FOR HELPING HER SLEEP. SHE REFUSED AT THE LAST MINUTE, BECAUSE SHE WANTED DILAUDID. ROCKYDRYL WAS WASTED.
--- NOTE | 2020-06-30 23:56 | NUR ---
pt refuses to turn to opposite side to reposition.
[2020-07-01 02:00] VITALS: BP 86/50
[2020-07-01] MEDS: VANCOMYCIN LEVEL IV SCH (03:00)
[2020-07-01 06:00] VITALS: BP 114/58
--- NOTE | 2020-07-01 06:26 | NUR ---
REPORT GIVEN TO RICHI BEDOYA.
--- NOTE | 2020-07-01 06:40 | NUR ---
received report from lisa STODDARD
[2020-07-01] MEDS: aspirin 81mg tablet.DR PO SCH (08:18)
[2020-07-01] MEDS: OMEGA-3/DHA/EPA/FISH OIL 1 EACH CAPSULE.DR PO SCH (08:18)
[2020-07-01] MEDS: lactobacillus rhamnosus 10,000 MMU CELLS/CAPSULE PO SCH ×2 (08:18→20:04)
[2020-07-01] MEDS: docusate sod 100mg capsule PO SCH ×2 (08:18→20:04)
[2020-07-01] MEDS: HYDROmorphone inj. 0.5 MG/0.5 ML DISP.SYRIN IV PRN ×4 (08:19→20:04)
[2020-07-01] MEDS: meropenem inj 500 MG in normal saline 100ml IV soln 100 ML IV SCH (08:23)
[2020-07-01 09:56] LABS: BASOPHILS # (AUTO) 0.1 X10'3 (0-0.2); BASOPHILS % (AUTO) 0.6 % (0-1); EOSINOPHILS # (AUTO) 0.7 X10'3 (0-0.9); EOSINOPHILS % (AUTO) 5.4 % (0-6); HEMATOCRIT 25.4 % (35.0-45.0); HEMOGLOBIN 8.3 g/dl (12.0-16.0); LYMPHOCYTES # (AUTO) 1.3 X10'3 (1.1-4.8); LYMPHOCYTES % (AUTO) 9.4 % (21-51); MEAN CORPUSCULAR HEMOGLOBIN 28.6 PG (27.0-31.0); MEAN CORPUSCULAR HGB CONC 32.5 g/dL (33.0-36.5); MEAN CORPUSCULAR VOLUME 88.1 FL (78-98); MEAN PLATELET VOLUME 6.4 FL (7.4-10.4); MONOCYTES % (AUTO) 7.2 % (2-12); NEUTROPHILS # (AUTO) 10.4 X10'3 (1.8-7.7); NEUTROPHILS % (AUTO) 77.4 % (42-75); PLATELET COUNT 211 X10'3 (140-440); RED BLOOD COUNT 2.89 X10'6 (4.20-5.60); RED CELL DISTRIBUTION WIDTH 14.9 % (11.5-14.5); WHITE BLOOD COUNT 13.4 X10'3 (4.5-11.0)
[2020-07-01 10:06] LABS: ALANINE AMINOTRANSFERASE 8 U/L (12-78); ALBUMIN 2.2 G/DL (3.4-5.0); ALBUMIN/GLOBULIN RATIO 0.4 (1.1-1.5); ALKALINE PHOSPHATASE 75 IU/L (46-116); ANION GAP 10 (8-16); ASPARTATE AMINO TRANSFERASE 17 U/L (10-37); BILIRUBIN,TOTAL 0.6 MG/DL (0.1-1.0); BLOOD UREA NITROGEN 31 MG/DL (7-18); BUN/CREATININE RATIO 7.2 (6.6-38.0); CALCIUM 7.6 MG/DL (8.5-10.1); CHLORIDE 99 MMOL/L (99-107); CREATININE 4.33 MG/DL (0.40-0.90); GLUCOSE 113 MG/DL (70-104); PHOSPHORUS 4.4 MG/DL (2.3-4.5); POTASSIUM 4.4 MMOL/L (3.5-5.1); SODIUM 135 MMOL/L (135-145); TOTAL CARBON DIOXIDE 26.3 MMOL/L (24-32); TOTAL PROTEIN 7.5 G/DL (6.4-8.2); VANCOMYCIN,RANDOM 21.5 UG/ML; eGFR 11 ML/MIN
[2020-07-01 11:31] LABS: PLATELET ESTIMATE NORMAL; POLYCHROMASIA FEW; STOMATOCYTES 2+; TOTAL CELLS COUNTED 100; TOXIC GRANULATION 1+
[2020-07-01 11:32] LABS: ANISOCYTOSIS 1+
[2020-07-01 12:56] VITALS: BP 95/53
--- NOTE | 2020-07-01 15:18 | NUR ---
Patient was very upset with diet order and wanted a regular diet. Dr. Costello explained the outcome if she went on a non renal diet. Patient understood the outcome and still wanted the regular diet. Patient will be placed on a regular diet.
--- NOTE | 2020-07-01 17:17 | NUR ---
Patient in room PCU 3024. I have received report from Chelsey STODDARD from [facility] and had the opportunity to ask questions and assume patient care.
[2020-07-01 17:30] VITALS: BP 108/55
[2020-07-01 17:45] VITALS: BP 99/59
--- NOTE | 2020-07-01 17:57 | NUR ---
Patient was transferred to surgical
--- NOTE | 2020-07-01 18:35 | NUR ---
Problems reprioritized. Patient report given, questions answered & plan of care reviewed with Charity STODDARD.
[2020-07-01 20:00] VITALS: BP 113/61
[2020-07-01] MEDS: enoxaparin 30mg/0.3ml syringe SUBCUT SCH (20:03)
[2020-07-01] MEDS: insulin glargine (Lantus) pen - multi-dose SQ SCH (20:16)
[2020-07-02] VITALS: BP 95/49
[2020-07-02] MEDS: HYDROmorphone inj. 0.5 MG/0.5 ML DISP.SYRIN IV PRN ×4 (00:25→13:34)
[2020-07-02] MEDS: VANCOMYCIN LEVEL IV SCH (02:55)
[2020-07-02 06:31] LABS: ALANINE AMINOTRANSFERASE 7 U/L (12-78); ALBUMIN 2.1 G/DL (3.4-5.0); ALBUMIN/GLOBULIN RATIO 0.4 (1.1-1.5); ALKALINE PHOSPHATASE 73 IU/L (46-116); ANION GAP 9 (8-16); ASPARTATE AMINO TRANSFERASE 15 U/L (10-37); BILIRUBIN,TOTAL 0.5 MG/DL (0.1-1.0); BLOOD UREA NITROGEN 36 MG/DL (7-18); BUN/CREATININE RATIO 7.9 (6.6-38.0); CALCIUM 7.4 MG/DL (8.5-10.1); CHLORIDE 100 MMOL/L (99-107); CREATININE 4.57 MG/DL (0.40-0.90); GLUCOSE 120 MG/DL (70-104); PHOSPHORUS 5.3 MG/DL (2.3-4.5); POTASSIUM 4.6 MMOL/L (3.5-5.1); SODIUM 135 MMOL/L (135-145); TOTAL CARBON DIOXIDE 26.3 MMOL/L (24-32); TOTAL PROTEIN 7.3 G/DL (6.4-8.2); VANCOMYCIN,RANDOM 19.6 UG/ML; eGFR 10 ML/MIN
[2020-07-02 06:33] LABS: BASOPHILS % (AUTO) 0.5 % (0-1); EOSINOPHILS # (AUTO) 0.6 X10'3 (0-0.9); EOSINOPHILS % (AUTO) 5.8 % (0-6); HEMATOCRIT 23.6 % (35.0-45.0); HEMOGLOBIN 7.9 g/dl (12.0-16.0); LYMPHOCYTES % (AUTO) 10.2 % (21-51); MEAN CORPUSCULAR HEMOGLOBIN 29.3 PG (27.0-31.0); MEAN CORPUSCULAR HGB CONC 33.3 g/dL (33.0-36.5); MEAN PLATELET VOLUME 6.5 FL (7.4-10.4); MONOCYTES # (AUTO) 0.9 X10'3 (0-0.9); MONOCYTES % (AUTO) 8.8 % (2-12); NEUTROPHILS # (AUTO) 7.7 X10'3 (1.8-7.7); NEUTROPHILS % (AUTO) 74.7 % (42-75); PLATELET COUNT 209 X10'3 (140-440); RED BLOOD COUNT 2.68 X10'6 (4.20-5.60); RED CELL DISTRIBUTION WIDTH 14.7 % (11.5-14.5); WHITE BLOOD COUNT 10.2 X10'3 (4.5-11.0)
--- NOTE | 2020-07-02 06:43 | NUR ---
Problems reprioritized. Patient report given, questions answered & plan of care reviewed with RICHI Houston.
[2020-07-02] MEDS: OMEGA-3/DHA/EPA/FISH OIL 1 EACH CAPSULE.DR PO SCH (07:48)
[2020-07-02] MEDS: lactobacillus rhamnosus 10,000 MMU CELLS/CAPSULE PO SCH (07:48)
[2020-07-02] MEDS: docusate sod 100mg capsule PO SCH (07:48)
[2020-07-02] MEDS: aspirin 81mg tablet.DR PO SCH (07:48)
[2020-07-02 08:00] VITALS: BP 95/47
[2020-07-02] MEDS ORDERED: heparin 1,000unit/ml 10ml vial 10 ML IV ONE (08:15)
[2020-07-02] MEDS ORDERED: albumin (human) 25% 100ml IV 100 ML IV PRN (08:15)
[2020-07-02] MEDS ORDERED: epoetin 20,000 units/ml inj IV ONE (08:15)
[2020-07-02] MEDS ORDERED: heparin 1,000 units/ml 10ml inj IV ONE (08:15)
[2020-07-02] MEDS: meropenem inj 500 MG in normal saline 100ml IV soln 100 ML IV SCH (09:13)
[2020-07-02 10:22] LABS: TOTAL CELLS COUNTED 100
[2020-07-02 10:23] LABS: ANISOCYTOSIS 1+; PLATELET ESTIMATE NORMAL; POLYCHROMASIA 1+; SPHEROCYTES 1+; STOMATOCYTES 2+; TOXIC GRANULATION 1+
[2020-07-02 12:40] VITALS: BP 109/58
--- NOTE | 2020-07-02 13:53 | NUR ---
Reassessment: Patient is now on a regular diet only after discussion with her MD, MD advised patient of risks of not following a renal or carb controlled diet. Patient's PO intake steady, 75-100% PO intake at two most recent meals. Pt has RD contact information if with any further food preferences. Last BM 07/01. Pt receiving routine bowel care with PRN bowel care available. Noted that phosphorus is still elevated, will d/w RN. Will continue to follow closely and monitor need for further nutrition intervention. Recommend: 1. Regular diet as d/w MD. chopped meats 2. recommend phosphate binder 3. routine bowel care 4. wt per rx Addendum: 07/02/20 at [address] Amended: Links added.
--- NOTE | 2020-07-02 16:18 | NUR ---
Patient stable and appropriate for discharge to LTAC at [facility]. All belongings taken from room. Patient discharged with IV intact and valentine catheter. Report has been called to Conchita at [facility]. All questions answered. Patient refused discharge wound pictures.
== END 2020-07-02 16:19 | DRG 720 ==
LOC: ER 06:17 → ED HOLD 09:45 → PCU 3S 14:57 → SUR 3N 07-01 17:47
PROVIDERS: ADMIT Internal Medicine Critical Care Medicine; ATTEND Internal Medicine Critical Care Medicine
PROC: 5A1D70Z Performance of Urinary Filtration, Intermittent, Less than 6 Hours Per Day (ICD-10-PCS; 2020-06-26)
PROC: 30233N1 Transfusion of Nonautologous Red Blood Cells into Peripheral Vein, Percutaneous Approach (ICD-10-PCS; principal; 2020-06-28)
DX: A41.9 Sepsis, unspecified organism (principal); E03.9 Hypothyroidism, unspecified; E11.22 Type 2 diabetes mellitus with diabetic chronic kidney disease; E11.42 Type 2 diabetes mellitus with diabetic polyneuropathy; E11.69 Type 2 diabetes mellitus with other specified complication; E66.01 Morbid (severe) obesity due to excess calories; E78.00 Pure hypercholesterolemia, unspecified; I12.0 Hypertensive chronic kidney disease with stage 5 chronic kidney disease or end stage renal disease; I48.91 Unspecified atrial fibrillation; L03.116 Cellulitis of left lower limb; L89.94 Pressure ulcer of unspecified site, stage 4; N18.6 End stage renal disease; M86.162 Other acute osteomyelitis, left tibia and fibula; Z20.828 Contact with and (suspected) exposure to other viral communicable diseases; Z80.1 Family history of malignant neoplasm of trachea, bronchus and lung; Z89.612 Acquired absence of left leg above knee; Z89.611 Acquired absence of right leg above knee; Z99.2 Dependence on renal dialysis; Z79.899 Other long term (current) drug therapy; Z79.4 Long term (current) use of insulin; Z79.82 Long term (current) use of aspirin
CPT/HCPCS: 36415; 36430; 36589; 80048; 80053; 80202; 82948; 83036; 83735; 84100; 84484; 85007; 85025; 86885; 86900; 86901; 86920; 87081; 87340; 93005; 96365; 97110; 97161; 97530; 99285; G0378; J1170; J1644; J1650; J1815; J2001; J2185; J2543; J3370; J7050; P9016; P9047; Q0163; Q4081

== ENCOUNTER 2020-07-15 11:10 | Day surgery (SDC) | payer MEDICAID ==
[~2020-07-15] VITALS: Ht 165.1 cm; Wt 143.0 kg
[~2020-07-15 11:10] MED LIST changes: -ASCO250T68 PO; +CEPH500C5 PO; -CHOL10002 PO; -FISH12002 PO; -FOLI0.8T19 PO; -GLUC-133 PO; +HYDR50SY PO; +INSU100I31 SQ; -LACT1CAP65 PO; +LACT1TAB21 PO; -LANTUS SQ; -LORA0.5T PO; -MERO500P IV; +OMEG-79 PO; -SEVE800T8 PO; -VITA1TAB20 PO; -hydromorphone PO
[2020-07-15] MEDS ORDERED: iohexol 300mg/ml 100ml inj. ONE ×2 (11:27→13:38)
[2020-07-15] MEDS ORDERED: heparin 1,000 UNITS/NS 500ml 500 ML ONE ×2 (11:27→14:40)
[2020-07-15] MEDS ORDERED: fentaNYL/PF 50MCG/1 ML 2ML syringe ONE ×3 (11:27→14:41)
[2020-07-15] MEDS ORDERED: LIDOcaine 1%/PF 5ML 10 MG/ML VIAL ONE (11:27)
[2020-07-15] MEDS ORDERED: midazolam 2 mg/2 ml injection ONE ×3 (11:27→14:59)
[2020-07-15] MEDS ORDERED: normal saline 1000ml 1,000 ML IV PRN (11:30)
[2020-07-15 11:45] VITALS: BP 99/52
[2020-07-15] MEDS ORDERED: tPA-cathflo 2 MG/2 ml IV flush ONE (12:06)
[2020-07-15] MEDS ORDERED: CALC500T11 PO (12:23)
[2020-07-15] MEDS ORDERED: [UNRECOGNIZED DRUG - CODE] (12:23)
[2020-07-15] MEDS ORDERED: HYDR4TAB45 PO (12:23)
[2020-07-15] MEDS ORDERED: NYSPWD TP (12:23)
[2020-07-15] MEDS ORDERED: INSU100V43 (12:23)
[2020-07-15] MEDS ORDERED: SODI650T29 PO (12:23)
[2020-07-15] MEDS ORDERED: DOCU-148 PO (12:23)
[2020-07-15] MEDS ORDERED: LEVO100T PO (12:23)
[2020-07-15] MEDS ORDERED: HYDROmorphone 2mg tablet PO SCH (13:10)
[2020-07-15] MEDS ORDERED: heparin 1,000unit/ml 10ml vial 10 ML ONE (14:14)
[2020-07-15] MEDS ORDERED: iohexol 300 MG/1 ML 50ml polymer ONE (14:40)
[2020-07-15 15:31] VITALS: BP 94/62
[2020-07-15 15:57] VITALS: BP 96/50
[2020-07-15 16:15] VITALS: BP 104/63
== END 2020-07-15 16:30 | disposition home or self-care (01) ==
LOC: SSTAY O 11:10
PROVIDERS: ATTEND Radiology Diagnostic Radiology
DX: T82.868A Thrombosis due to vascular prosthetic devices, implants and grafts, initial encounter (principal); E11.51 Type 2 diabetes mellitus with diabetic peripheral angiopathy without gangrene; N18.9 Chronic kidney disease, unspecified; Z79.4 Long term (current) use of insulin; Z79.82 Long term (current) use of aspirin; Y83.8 Other surgical procedures as the cause of abnormal reaction of the patient, or of later complication, without mention of misadventure at the time of the procedure
CPT/HCPCS: 36905; 76937; 99152; 99153; J1644; J2250; J2997; J3010; J7030; Q9967

== ENCOUNTER 2020-07-26 08:13 | Day surgery (SDC) | payer MEDICAID ==
[~2020-07-26] VITALS: Ht 165.1 cm; Wt 143.5 kg
[~2020-07-26 08:13] MED LIST changes: +CALC500T11 PO; -CEPH500C5 PO; +DOCU-148 PO; -HYDR-4353 PO; +HYDR4TAB45 PO; -INSU100I31 SQ; +INSU100V43; +LEVO100T PO; +NYSPWD TP; +SODI650T29 PO; +[UNRECOGNIZED DRUG - CODE]
[2020-07-26 08:15] VITALS: BP 106/61
[2020-07-26] MEDS ORDERED: APIX5TAB3 PO (08:23)
[2020-07-26] MEDS ORDERED: ASPI-611 PO (08:24)
[2020-07-26] MEDS ORDERED: CALC500T63 PO (08:25)
[2020-07-26] MEDS ORDERED: DOCU-148 PO (08:25)
[2020-07-26] MEDS ORDERED: OMEG-79 PO (08:26)
[2020-07-26] MEDS ORDERED: HYDR-3686 PO (08:26)
[2020-07-26] MEDS ORDERED: INSU100C10 SQ (08:27)
[2020-07-26] MEDS ORDERED: LEVO100T9 PO (08:28)
[2020-07-26] MEDS ORDERED: LACT1CAP65 PO (08:29)
[2020-07-26] MEDS ORDERED: PANT-47 PO (08:29)
[2020-07-26] MEDS ORDERED: SODI650T29 PO (08:30)
[2020-07-26] MEDS ORDERED: NYSPWD TP (08:32)
[2020-07-26] MEDS ORDERED: HYDR1LIQ3 IM (08:34)
[2020-07-26] MEDS ORDERED: HYDR4TAB45 PO (08:35)
[2020-07-26] MEDS ORDERED: LACT10SO PO (08:37)
[2020-07-26] MEDS ORDERED: TEMA7.5C PO (08:38)
[2020-07-26] MEDS ORDERED: POLY119P2 PO (08:38)
[2020-07-26] MEDS ORDERED: LIDOcaine Viscous 15ml cup ONE (09:14)
[2020-07-26] MEDS ORDERED: fentaNYL/PF 50MCG/1 ML 2ML syringe ONE (09:14)
[2020-07-26] MEDS ORDERED: MIDAZolam 5mg/5ml vial ONE (09:14)
[2020-07-26 10:49] VITALS: BP 83/54
[2020-07-26 10:59] VITALS: BP 91/41
[2020-07-26 11:09] VITALS: BP 100/47
[2020-07-26 11:19] VITALS: BP 90/53
== END 2020-07-26 12:30 ==
LOC: GI LAB 08:13
PROVIDERS: ATTEND Internal Medicine Gastroenterology
DX: D50.0 Iron deficiency anemia secondary to blood loss (chronic) (principal); K64.8 Other hemorrhoids; K57.30 Diverticulosis of large intestine without perforation or abscess without bleeding; K29.50 Unspecified chronic gastritis without bleeding; K64.4 Residual hemorrhoidal skin tags; K44.9 Diaphragmatic hernia without obstruction or gangrene; K21.00 Gastro-esophageal reflux disease with esophagitis, without bleeding; E11.22 Type 2 diabetes mellitus with diabetic chronic kidney disease; I12.0 Hypertensive chronic kidney disease with stage 5 chronic kidney disease or end stage renal disease; N18.6 End stage renal disease; I25.10 Atherosclerotic heart disease of native coronary artery without angina pectoris; E66.9 Obesity, unspecified; Z68.43 Body mass index [BMI] 50.0-59.9, adult; Z79.899 Other long term (current) drug therapy; Z79.4 Long term (current) use of insulin
CPT/HCPCS: 43239; 45378; 76937; 99152; J2250; J3010; 99153; A4620; J7040